=== PATIENT | female | born 1935 | race Caucasian/White ===

== ENCOUNTER → 2017-09-17 | Outpatient (CLI) | payer MEDICARE, BC | LOC: MC.RAD 14:39 | DX: Z12.31 Encounter for screening mammogram for malignant neoplasm of breast (principal); Z98.82 Breast implant status ==

== ENCOUNTER → 2018-11-15 | Outpatient (CLI) | payer MEDICARE, BC | LOC: MC.RAD 10-20 15:00 | DX: Z12.31 Encounter for screening mammogram for malignant neoplasm of breast (principal); Z98.82 Breast implant status ==

== ENCOUNTER → 2019-12-06 | Outpatient (CLI) | payer MEDICARE | LOC: MC.RAD 18:17 | DX: Z12.31 Encounter for screening mammogram for malignant neoplasm of breast (principal) ==

== ENCOUNTER → 2021-04-02 | Outpatient (CLI) | payer MEDICARE | LOC: MC.RAD 13:32 | DX: Z12.31 Encounter for screening mammogram for malignant neoplasm of breast (principal); Z98.82 Breast implant status ==

== ENCOUNTER → 2022-10-20 | Outpatient (CLI) | payer MEDICARE, BC | LOC: MC.RAD 12:56 | DX: N62 Hypertrophy of breast (principal) ==

== ENCOUNTER → 2023-08-17 | Outpatient (CLI) | payer MEDICARE, BC ==
[~2023-08-17] MED LIST: LIPITOR20 MG PO; NAPROSYN 2250 MG/TAB PO; NORCO 325 MG-51 TAB PO
== END ==
LOC: MC.RAD 12:47
DX: Z12.31 Encounter for screening mammogram for malignant neoplasm of breast (principal)

== ENCOUNTER → 2024-03-27 | Outpatient (CLI) | payer MEDICARE, BC | LOC: MC.RAD 10:53 | DX: N63.11 Unspecified lump in the right breast, upper outer quadrant (principal) ==